=== PATIENT | female | born 1990 | race Caucasian/White ===

== ENCOUNTER → 2017-04-20 | Day surgery (SDC) | payer OTHER, MEDICAID ==
[~2017-04-20] VITALS: Ht 160 cm; Wt 103.5 kg
[~2017-04-20] MED LIST: *MEPERIDINE 25 MG INJ VIAL PERIprocedural Use ONLY ONE; ACETAMINOPHEN 1000 MG/100 ML 100 ML IV ONE; ACETAMINOPHEN/HYDROcodone 325 MG/5 MG TAB ONE; AMOX500T PO; AZIT500T2 PO; BACITRACIN TOP OINT 15 GM TUBE ONE; BUPIVACAINE HCL PF 0.5% 30 ML VIAL ONE; CHLORHEXIDINE GLUCONATE 2 % 1 PACK (2 CLOTHS) TOPICAL PRN; FAMOTIDINE 20 MG/2 ML VIAL ONE; INSULIN HUMAN REGULAR 1,000 UNITS/10 ML VIAL SQ PRN; LACTATED RINGER'S 1000 ML INJ 500 ML IV SCH; LACTATED RINGER'S 1000 ML IV PRN; LIDOCAINE HCL 2% 50 ML VIAL ONE; LORazepam 2 MG/ML VIAL ONE; METOPROLOL TARTRATE 25 MG TAB PO PRN; MIDAZOLAM HCL 2 MG/2 ML VIAL ONE; MORPHINE SULFATE 4 MG/ML INJ ONE; NEOMYCIN/POLYMYXIN 1 ML G.U. IRRIGANT ONE; ONDANSETRON HCL 4 MG/2 ML VIAL IV PUSH ONE; POVIDONE IODINE 5% (ANTISEPSIS KIT) 4 APPLICATIONS EACH NARE PRN; PROPOFOL 200 MG/20 ML AMP IV ONE; SODIUM CHLORID 0.9% 500 ML IV PRN; TOBR0.3S EACH EYE; ceFAZolin 1,000 MG/NS 100 ML IV SCH; ceFAZolin 2 GM PREMIX 50 ML IV SCH
[2017-04-20 15:31] VITALS: PULSE 120
--- NOTE | 2017-04-20 15:34 | PD.OP ---
Operative Report Preoperative Diagnosis: (1) Laceration of right forearm with complication Postoperative Diagnosis: (1) laceration median nerve right forearm (2) Laceration of right forearm with complication (3) laceration palmaris longus right forearm (4) lacertion flexor carpi radialis right forearm Procedure: exploration, repair median nerve, repair flexor carpi radialis and palmaris longus right forearm Anesthesia: general Surgeon: Javier Villela Cleaning Porter(s): karla Operation and Findings: laceration volar aspect distal right forearm 4cms laceration median nerve laceration flexor carpi radialis laceration palmaris longus Javier Villela MD Apr 20, 2017 15:34
[2017-04-20 16:30] VITALS: TEMP 98.6
[2017-04-20 17:15] VITALS: BP 135/90; PULSE 109; RESP 14; O2SAT 96
--- NOTE | 2017-04-20 18:42 | MP ---
cc: LIEN OAKLEY DATE OF SURGERY 04/20/17 PREOPERATIVE DIAGNOSIS Laceration right forearm with laceration of the median nerve and flexor tendons. POSTOPERATIVE DIAGNOSIS Laceration volar aspect of the right forearm with laceration median nerve, laceration flexor carpi radialis and laceration palmaris longus. PROCEDURE Exploration, repair of median nerve, repair flexor carpi radialis and repair palmaris longus and repair of laceration right forearm. SURGEON Dr. Ash Oakley ANESTHESIA General ESTIMATED BLOOD LOSS Minimal TOURNIQUET TIME 103 minutes at 250 mmHg. IMPLANTS USED Axogen nerve protector 7 mm x 40 mm. HISTORY The patient is a 26-year-old female who presented complaints of laceration to the right distal forearm about 5 days ago. The patient fell and lacerated the right forearm on a piece of glass. On examination, she had a transverse laceration involving the distal volar aspect of the forearm measuring about 4-5 cm. The patient had no sensation in the median nerve distribution. Range of motion of the fingers and the wrist was painful. She was consented for exploration and repair of median nerve and possible repair of flexor tendons. The patient was explained risk and benefits of the procedure. PROCEDURE IN DETAIL The patient was brought to the operating room under general anesthesia. The right upper extremity was thoroughly prepped and draped. The previously placed sutures were removed. Incision was then extended both proximally and distally in a curvilinear fashion. Exploration of the wound was carried out. She had an oblique laceration over the volar distal aspect of the forearm. There was almost complete laceration except for two fascicular bundles on the ulnar aspect of the median nerve which was intact. There was complete laceration of the flexor carpi radialis and complete laceration of palmaris longus. Thorough wash of the wound was carried out. Attention was initially directed to the flexor carpi radialis. The tendon edges were freshened, was held in place with hypodermic needles and was approximated using 3-0 Ethibond in a cross cruciate fashion with four strands crossing the repair site. The palmaris longus was then approximated using 3-0 Ethibond in a cross cruciate fashion with four strands crossing the repair site. Next, attention was then directed to the median nerve. Edges of the median nerve were freshened using 11 blade. The median nerve was then approximated in an epineural fashion using 6-0 Prolene sutures. Multiple interrupted sutures were applied. The fascicular bundles were well-approximated. There was no evidence of tension across the repair site. The repair site was then protected using Axogen nerve protector 7 X 40mm which was held in place by 6-0 Prolene in a horizontal mattress interrupted fashion. Bleeding points were cauterized with bipolar cautery. Skin laceration was approximated using 5-0 nylon in a horizontal mattress interrupted fashion. Xeroform bacitracin dressing applied. Bulky hand dressing was applied which was held in place by Sof-Rol and a dorsal block splint was applied keeping the distal in flexion. Tourniquet was deflated. Total tourniquet time was 103 minutes. She had good distal circulation at the end of the procedure. The patient was recovered and sent to go recovery in stable condition. She will follow up in [id number] days' time for a dressing change. Lien Oakley MD SE/ /3:35 PM /6:27 PM DARRYL
== END | disposition home or self-care (01) ==
LOC: PHSDC 10:55
PROVIDERS: ATTEND Surgery Surgery of the Hand
DX: S56.521A Laceration of other extensor muscle, fascia and tendon at forearm level, right arm, initial encounter (principal); S64.11XA Injury of median nerve at wrist and hand level of right arm, initial encounter; S66.821A Laceration of other specified muscles, fascia and tendons at wrist and hand level, right hand, initial encounter; W01.0XXA Fall on same level from slipping, tripping and stumbling without subsequent striking against object, initial encounter; E66.9 Obesity, unspecified; Z68.41 Body mass index [BMI] 40.0-44.9, adult
CPT/HCPCS: C9353; J0131; J2060; J2175; J2250; J2270; J2405; J3010; J7120

== ENCOUNTER 2017-06-26 18:39 | Emergency (ER) | payer MEDICAID, OTHER ==
[~2017-06-26 18:39] MED LIST changes: -*MEPERIDINE 25 MG INJ VIAL PERIprocedural Use ONLY ONE; -ACETAMINOPHEN 1000 MG/100 ML 100 ML IV ONE; -ACETAMINOPHEN/HYDROcodone 325 MG/5 MG TAB ONE; -AZIT500T2 PO; -BACITRACIN TOP OINT 15 GM TUBE ONE; -BUPIVACAINE HCL PF 0.5% 30 ML VIAL ONE; -CHLORHEXIDINE GLUCONATE 2 % 1 PACK (2 CLOTHS) TOPICAL PRN; -FAMOTIDINE 20 MG/2 ML VIAL ONE; -INSULIN HUMAN REGULAR 1,000 UNITS/10 ML VIAL SQ PRN; -LACTATED RINGER'S 1000 ML INJ 500 ML IV SCH; -LACTATED RINGER'S 1000 ML IV PRN; -LIDOCAINE HCL 2% 50 ML VIAL ONE; -LORazepam 2 MG/ML VIAL ONE; -METOPROLOL TARTRATE 25 MG TAB PO PRN; -MIDAZOLAM HCL 2 MG/2 ML VIAL ONE; -MORPHINE SULFATE 4 MG/ML INJ ONE; -NEOMYCIN/POLYMYXIN 1 ML G.U. IRRIGANT ONE; -ONDANSETRON HCL 4 MG/2 ML VIAL IV PUSH ONE; -POVIDONE IODINE 5% (ANTISEPSIS KIT) 4 APPLICATIONS EACH NARE PRN; -PROPOFOL 200 MG/20 ML AMP IV ONE; -SODIUM CHLORID 0.9% 500 ML IV PRN; -TOBR0.3S EACH EYE; -ceFAZolin 1,000 MG/NS 100 ML IV SCH; -ceFAZolin 2 GM PREMIX 50 ML IV SCH
[2017-06-26 18:41] VITALS: BP 132/87; PULSE 120; RESP 20; TEMP 98.6; O2SAT 100
[2017-06-26] MEDS ORDERED: SODIUM CHLOR 0.9% 1000 ML INJ 1,000 ML IV SCH (19:32)
[2017-06-26] MEDS ORDERED: SODIUM CHLOR 0.9% 1000 ML INJ 1,000 ML IV ONE (19:32)
[2017-06-26] MEDS ORDERED: SODIUM CHLORIDE 0.9% FLUSH 10 ML FLUSH IVF PRN (19:45)
[2017-06-26] MEDS ORDERED: ONDANSETRON HCL 4 MG/2 ML VIAL IV PUSH ONE (19:45)
--- NOTE | 2017-06-26 19:58 | PD ---
HPI Chief Complaint: Related Problem Time Seen by Provider: 19:40 Travel History International Travel<30 days: No Contact w/Intl Traveler<30days: No Traveled to known affect area: No History of Present Illness HPI This is a 26-year-old 001 female patient who is estimated gestational age 7 weeks 1 day. She presents for evaluation of nausea, vomiting, dry heaving, dysuria. Symptoms started 5 days ago. She reports that she has been having little to eat or drink over the past several days secondary to severe nausea. She endorses dysuria, burning sensation when she urinates, with associated lower back pain. She endorses some epigastric discomfort which she believes is secondary to vomiting and retching. She denies fevers or chills, chest pain or shortness of breath, cough or congestion. She endorses some clear vaginal discharge. She is sexually active with one long-term partner. Denies any vaginal bleeding. Her [employer] is Dr. Thornton. She reports that she had a transvaginal ultrasound in his office one week ago which revealed an intrauterine with heart tones. No other complaints at this time. PFSH Past Medical History Cancer: No Cardiovascular Problems: Yes (MURMUR ( CHILD)) Diabetes: No Diminished Hearing: No Endocrine: No Genitourinary: No Hepatitis: No Hiatal Hernia: No Immune Disorder: No Musculoskeletal: No Neurologic: No Psychiatric: No Reproductive: No Respiratory: No Immunizations Current: Yes Thyroid Disease: No ?: : 0 Past Surgical History Abdominal Surgery: Yes () AICD: No Cardiac Surgery: No Ear Surgery: No Endocrine Surgery: No Eye Surgery: No Genitourinary Surgery: No Gynecologic Surgery: No Joint Replacement: No Oral Surgery: Yes (TONSILLECTOMY) Pacemaker: No Thoracic Surgery: No Tonsillectomy: Yes (06/09/2010) Other Surgery: Yes (wrist tendon and nerve repair) Social History Alcohol Use: No Tobacco Use: No Substance Use: No Allergies-Medications (Allergen,Severity, Reaction): Coded Allergies: aspirin (Verified Allergy, Severe, Nausea/Vomiting, 04/20/17) ibuprofen (Verified Adverse Reaction, Intermediate, VOMITING, 04/20/17) Reported Meds & Prescriptions Reported Meds & Active Scripts Active Diclegis (Doxylamine-Pyridoxine) 10-10 Mg Tab 2 Tab PO ONCE DAILY BEDTIME 14 Days Keflex (Cephalexin) 500 Mg Cap 500 Mg PO Q12H 7 Days Reported 19 29-1 mg ( Vit W/ Ferrous Fumara) 29 Mg Iron-1 Mg Chw Amoxicillin 500 Mg Tab 500 Mg PO BID Review of Systems Except as stated in HPI: all other systems reviewed are Neg Physical Exam Narrative GENERAL: Pleasant well-developed well-nourished female in no acute distress SKIN: Warm and dry. HEAD: Atraumatic. Normocephalic. EYES: Pupils equal and round. No scleral icterus. No injection or drainage. ENT: No nasal bleeding or discharge. Mucous membranes pink and moist. NECK: Trachea midline. No JVD. CARDIOVASCULAR: Regular rate and rhythm. No murmur appreciated. RESPIRATORY: No accessory muscle use. Clear to auscultation. Breath sounds equal bilaterally. GASTROINTESTINAL: Abdomen soft, non-tender, nondistended. Hepatic and splenic margins not palpable. MUSCULOSKELETAL: No obvious deformities. No clubbing. No cyanosis. No edema. NEUROLOGICAL: Awake and alert. No obvious cranial nerve deficits. Motor grossly within normal limits. Normal speech. PSYCHIATRIC: Appropriate mood and affect; insight and judgment normal. Data Data Last Documented VS Vital Signs Date Time Temp Pulse Resp B/P (MAP) Pulse Ox O2 Delivery O2 Flow Rate FiO2 06/26/17 18:41 98.6 120 20 132/87 (102) 100 Room Air Orders Orders Electrocardiogram (06/26/17 19:32) Ed Urine Pregnancytest Poc (06/26/17 19:32) Complete Blood Count With Diff (06/26/17 19:32) Comprehensive Metabolic Panel (06/26/17 19:32) Urinalysis - C+S If Indicated (06/26/17 19:32) Ecg Monitoring (06/26/17 19:32) Iv Access Insert/Monitor (06/26/17 19:32) Oximetry (06/26/17 19:32) Sodium Chloride 0.9% Flush (Ns Flush) (06/26/17 19:45) Sodium Chlor 0.9% 1000 Ml Inj (Ns 1000 M (06/26/17 19:32) Lipase (06/26/17 19:32) Sodium Chlor 0.9% 1000 Ml Inj (Ns 1000 M (06/26/17 19:32) Electrocardiogram (06/26/17 19:32) Magnesium (Mg) (06/26/17 19:32) Ondansetron Inj (Zofran Inj) (06/26/17 19:45) Urine Culture (06/26/17 19:55) Ceftriaxone Inj (Rocephin Inj) (06/26/17 20:45) Ed Discharge Order (06/26/17 20:47) Potassium Chloride (Kcl) (06/26/17 21:00) Labs Laboratory Tests Test 06/26/17 19:55 White Blood Count 4.7 TH/MM3 Red Blood Count 4.59 MIL/MM3 Hemoglobin 12.4 GM/DL Hematocrit 37.0 % Mean Corpuscular Volume 80.7 FL Mean Corpuscular Hemoglobin 27.1 PG Mean Corpuscular Hemoglobin Concent 33.6 % Red Cell Distribution Width 13.6 % Platelet Count 206 TH/MM3 Mean Platelet Volume 7.5 FL Neutrophils (%) (Auto) 53.0 % Lymphocytes (%) (Auto) 36.0 % Monocytes (%) (Auto) 10.5 % Eosinophils (%) (Auto) 0.3 % Basophils (%) (Auto) 0.2 % Neutrophils # (Auto) 2.5 TH/MM3 Lymphocytes # (Auto) 1.7 TH/MM3 Monocytes # (Auto) 0.5 TH/MM3 Eosinophils # (Auto) 0.0 TH/MM3 Basophils # (Auto) 0.0 TH/MM3 CBC Comment DIFF FINAL Differential Comment Urine Color YELLOW Urine Turbidity HAZY Urine pH 5.5 Urine Specific [place] 1.030 Urine Protein TRACE mg/dL Urine Glucose (UA) NEG mg/dL Urine Ketones NEG mg/dL Urine Occult Blood MOD Urine Nitrite NEG Urine Bilirubin NEG Urine Urobilinogen 2.0 MG/DL Urine Leukocyte Esterase LARGE Urine RBC 10 /hpf Urine WBC 22 /hpf Urine Squamous Epithelial Cells 9 /hpf Urine Calcium Oxalate Crystals OCC /hpf Urine Amorphous Sediment RARE Urine Bacteria FEW /hpf Urine Mucus FEW /lpf Microscopic Urinalysis Comment CULTURE INDICATED Blood Urea Nitrogen 7 MG/DL Creatinine 0.85 MG/DL Random Glucose 79 MG/DL Total Protein 7.6 GM/DL Albumin 3.5 GM/DL Calcium Level 8.9 MG/DL Magnesium Level 1.8 MG/DL Alkaline Phosphatase 75 U/L Aspartate Amino Transf (AST/SGOT) 21 U/L Alanine Aminotransferase (ALT/SGPT) 30 U/L Total Bilirubin 0.2 MG/DL Sodium Level 136 MEQ/L Potassium Level 3.4 MEQ/L Chloride Level 101 MEQ/L Carbon Dioxide Level 26.0 MEQ/L Anion Gap 9 MEQ/L Estimat Glomerular Filtration Rate 82 ML/MIN Lipase 147 U/L MDM Medical Decision Making Medical Screen Exam Complete: Yes Emergency Medical Condition: Yes Medical Record Reviewed: Yes Interpretation(s) EKG sinus tachycardia rate 110 CBC unremarkable CMP Urinalysis large leukocytes, 10 RBCs, culture pending Differential Diagnosis Hyperemesis gravidarum, dehydration, electrolyte abnormality, pyelonephritis, cystitis Narrative Course The patient was placed on ECG monitoring pulse oximetry. A 12-lead EKG was obtained. 2 L of IV fluids of in order. Plan is for basic lab work, urinalysis. The patient was initially requesting diclegis for nausea however I called our pharmacist and we do not carry that here in the hospital and certainly the patient will be discharged with a prescription for diclegis. The patient is agreeable to a one time dose of Zofran, category B, discussed complication risks. CBC is unremarkable. Urinalysis is consistent with urinary tract infection, IV Rocephin initiated. The patient's potassium was 3.4 so she was given oral potassium. Upon examination feels significant improved, heart rate is improved to 100, she is tolerating oral hydration. At this point in time the plan is to discharge the patient with Keflex and prescription for diclegis. Stable for discharge. Diagnosis Primary Impression: Nausea and vomiting during Additional Impression: Urinary tract infection Qualified Codes: N39.0 - Urinary tract infection, site not specified; R31.9 - Hematuria, unspecified Additional Instructions: Stable hydrated and well-nourished. Medication as prescribed. Slowly advance diet as tolerated. Follow-up with [employer]. Return for any new or worsening symptoms such as dehydration, high fevers, intractable pain Med/Other Pt SpecificInfo: Prescription(s) given Scripts Doxylamine-Pyridoxine (Diclegis) 10-10 Mg Tab 2 TAB PO once daily bedtime for 14 Days, #28 Prov: Sharan Chapa MD 06/26/17 Cephalexin (Keflex) 500 Mg Cap 500 MG PO Q12H for Infection for 7 Days, #14 CAP 0 Refills Prov: Sharan Chapa MD 06/26/17 Disposition: 01 DISCHARGE HOME Condition: Stable Grant Montanez Jun 26, 2017 19:58
[2017-06-26] MEDS ORDERED: PREN29CH2 (20:09)
[2017-06-26 20:18] LABS: AUTOMATED NEUTROPHIL # 2.5 TH/MM3 (1.8-7.7); BASOPHIL % 0.2 % (0.0-2.0); EOSINOPHIL % 0.3 % (0.0-4.0); HEMO FLAGS DIFF FINAL; LYMPHOCYTE # 1.7 TH/MM3 (1.0-4.8); MEAN CELL VOLUME 80.7 FL (80.0-100.0); MEAN CORPUSCULAR HEMOGLOBIN 27.1 PG (27.0-34.0); MEAN CORPUSCULAR HGB CONC 33.6 % (32.0-36.0); MONO % 10.5 % (0.0-8.0); PLATELET COUNT 206 TH/MM3 (150-450); RED BLOOD COUNT 4.59 MIL/MM3 (4.00-5.30); RED CELL DISTRIBUTION WIDTH 13.6 % (11.6-17.2); WHITE BLOOD COUNT 4.7 TH/MM3 (4.0-11.0)
[2017-06-26 20:22] LABS: BACTERIA, URINE FEW /hpf; BLOOD, URINE MOD (NEG); CALCIUM OXALATE CRYSTALS,URINE OCC /hpf; COMMENT (UR) CULTURE INDICATED; CULTURE IF INDICATED CULTURE INDICATED; GLUCOSE,URINE NEG (NEG); KETONE, URINE NEG (NEG); MUCUS URINE FEW /lpf (OCC); NITRITE,URINE NEG (NEG); PH, URINE 5.5 (5.0-8.5); SQUAMOUS EPITHELIAL CELL URINE 9 /hpf (0-5); URINE COLOR YELLOW (YELLW/STRAW)
[2017-06-26 20:38] LABS: ANION GAP 9 MEQ/L (5-15); AST (GOT) 21 U/L (15-37); BLOOD UREA NITROGEN 7 MG/DL (7-18); CHLORIDE 101 MEQ/L (98-107); GLOMERULAR FILTRATION RATE 82 ML/MIN (>89); MAGNESIUM 1.8 MG/DL (1.5-2.5); POTASSIUM 3.4 MEQ/L (3.5-5.1); SODIUM (NA) 136 MEQ/L (136-145)
[2017-06-26 20:39] LABS: ALT (GPT) 30 U/L (10-53)
[2017-06-26 20:41] LABS: ALKALINE PHOSPHATASE 75 U/L (45-117); TOTAL BILIRUBIN ADULT 0.2 MG/DL (0.2-1.0)
[2017-06-26] MEDS ORDERED: cefTRIAXone INJ 1,000 MG in SODIUM CHLORIDE 0.9% INJ 100 ML IV ONE (20:45)
[2017-06-26] MEDS ORDERED: CEPH-460 PO (20:51)
[2017-06-26] MEDS ORDERED: DOXY10TA PO (20:51)
[2017-06-26] MEDS ORDERED: POTASSIUM CHLORIDE 20 MEQ CONTROLLED RELEASE TAB PO ONE (21:00)
--- NOTE | 2017-06-27 14:34 | EKG ---
Date Performed: 06/26/2017 Time Performed: 20:01:01 PTAGE: 26 years EKG: SINUS TACHYCARDIA ABNORMAL RHYTHM ECG Compared to prior tracing no significant change PREVIOUS TRACING : 01/27/2002 01.06 DOCTOR: Karla Sarabia Interpretating Date/Time 06/27/2017 14:28:32
== END 2017-06-26 21:47 | disposition home or self-care (01) ==
LOC: NEPD 18:39
DX: O21.9 Vomiting of pregnancy, unspecified (principal); O23.41 Unspecified infection of urinary tract in pregnancy, first trimester; B96.89 Other specified bacterial agents as the cause of diseases classified elsewhere; N89.8 Other specified noninflammatory disorders of vagina; R00.0 Tachycardia, unspecified; R94.31 Abnormal electrocardiogram [ECG] [EKG]; Z3A.01 Less than 8 weeks gestation of pregnancy; Z79.899 Other long term (current) drug therapy; Z88.6 Allergy status to analgesic agent
CPT/HCPCS: 80053; 81001; 83690; 83735; 84703; 85025; 87086; 93005; 96361; 96365; 96375; 99284; J0696; J2405; J7030

== ENCOUNTER 2017-11-03 10:42 | Emergency (ER) | payer MEDICAID ==
[~2017-11-03 10:42] MED LIST changes: +CEPH-460 PO; +DOXY10TA PO; +PREN29CH2
[2017-11-03 11:53] LABS: BILIRUBIN, URINE NEG (NEG); BLOOD, URINE TRACE (NEG); GLUCOSE,URINE NEG (NEG); KETONE, URINE TRACE mg/dL (NEG); MUCUS URINE MANY /lpf (OCC); NITRITE,URINE NEG (NEG); SQUAMOUS EPITHELIAL CELL URINE 19 /hpf (0-5); URINE COLOR YELLOW (YELLW/STRAW); URINE LEUKOCYTE ESTERASE NEG (NEG)
[2017-11-03] MEDS ORDERED: ACETAMINOPHEN 325 MG TAB PO ONE (12:15)
--- NOTE | 2017-11-03 12:20 | PD ---
HPI Chief Complaint URI sx Date Seen: Nov 03, 2017 Time Seen: 11:06 Travel History International Travel<30 Days: No Contact w/Intl Traveler<30Days: No History of Present Illness HPI Patient is a 26 year old at 24 weeks gestation who presents for URI symptoms x 5 days. Symptoms started Monday, including cough, congestion, some shortness of breath with exertion. She came in today because still sick. No sick contacts but works at [employer]. Fever 101 orally at home yesterday. She is currently being treated for UTI on amoxicillin She denies leakage of fluid, vaginal bleeding, and contractions. She feels baby moving regularly. She denies BACON/N/V/D/fever/sick contacts/SOB/calf pain/ dizziness/seeing spots. OB care is with Dr. Fernandez. History Past Medical History Medical History: Denies Significant Hx Obstetric History Obstetric History G1: 2016, primary CS due to FTP, 8lb 2 oz G2: current Past Surgical History Narrative Surgical CS Tonsils Wrist surgery Family History Family History: Negative Social History Alcohol Use: No Tobacco Use: No Substance Abuse: No Allergies-Medications (Allergen,Severity, Reaction): Coded Allergies: aspirin (Verified Allergy, Severe, Nausea/Vomiting, 04/20/17) ibuprofen (Verified Adverse Reaction, Intermediate, VOMITING, 04/20/17) Home Meds Active Scripts Doxylamine-Pyridoxine (Diclegis) 10-10 Mg Tab, 2 TAB PO once daily bedtime for 14 Days, #28 Prov:Sharan Chapa MD 06/26/17 Cephalexin (Keflex) 500 Mg Cap, 500 MG PO Q12H for Infection for 7 Days, #14 CAP 0 Refills Prov:Sharan Chapa MD 06/26/17 Reported Medications Vit W/ Ferrous Fumara ( 19 29-1 mg) 29 Mg Iron-1 Mg Chw 06/26/17 Amoxicillin (Amoxicillin) 500 Mg Tab, 500 MG PO BID for Infection, TAB 0 Refills 04/20/17 Review of Systems General / Constitutional: No: Fever, Chills Eyes: No: Diploplia, Blurred Vision HENT: Headaches, No: Vertigo Cardiovascular: No: Irregular Rhythm, Chest Pain or Discomfort Respiratory: No: Cough, Short of Breath Gastrointestinal: No: Nausea, Vomiting, Diarrhea, Abdominal Pain Genitourinary: No: Urgency, Dysuria Musculoskeletal: No: Weakness, Edema Skin: No Rash, No Itching Neurologic: Weakness, No: Syncope Psychiatric: No: Anxiety, Depression Physical Exam Narrative GENERAL: Well-nourished, well-developed patient. SKIN: Warm and dry. HEAD: Normocephalic and atraumatic. EYES: No scleral icterus. No injection or drainage. ENT: No nasal drainage noted. Mucous membranes pink. Airway patent. NECK: Supple, trachea midline. No JVD. CARDIOVASCULAR: Regular rate and rhythm without murmurs, gallops, or rubs. RESPIRATORY: Breath sounds equal bilaterally. No accessory muscle use. ABDOMEN/GI: Abdomen soft, non-tender, bowel sounds present, no rebound, no guarding. Gravid. GENITOURINARY: deferred FHT's: Category: 2 Baseline: 160 Reactive: y Variability: mod Decels: absent EXTREMITIES: No cyanosis or edema. BACK: Nontender without obvious deformity. No CVA tenderness. NEUROLOGICAL: Awake and alert. Motor and sensory grossly within normal limits. Five out of 5 muscle strength in all muscle groups. Normal speech. Data Data Vital Signs Reviewed: Yes (BP110/65, P123, R18, T97.4, Oximetry 97%) Orders Orders Vital Signs (Adult) .ON ADMISSION (11/03/17 11:19) ^ Labor Status (11/03/17 11:19) Urinalysis - C+S If Indicated (11/03/17 11:19) ^ Non Stress Test (11/03/17 11:19) Influenzae A/B Antigen (11/03/17 12:00) Oximetry (11/03/17 12:00) Labs Laboratory Tests Test 11/03/17 10:45 Urine Color YELLOW Urine Turbidity HAZY Urine pH 6.0 Urine Specific [place] 1.033 Urine Protein 30 Urine Glucose (UA) NEG Urine Ketones TRACE Urine Occult Blood TRACE Urine Nitrite NEG Urine Bilirubin NEG Urine Urobilinogen 2.0 Urine Leukocyte Esterase NEG Urine RBC 4 Urine WBC 2 Urine Squamous Epithelial Cells 19 Urine Mucus MANY Microscopic Urinalysis Comment CULT NOT INDICATED MDM Narrative Course / MDM Patient at 24 weeks gestation, presents with viral URI symptoms. Intrauterine at 24 weeks: Category 1 tracing No CTX UA showing dehydration (ketones, spec gravity 1.033), no infection PO hydration Routine care with Dr. Jim ROBERSONI sx: Afebrile, VSS, not hypoxic. Clinical exam benign. Suspect viral etiology Acetaminophen 650mg PO x 1 if pt desires Will check for flu, if negative will discharge home with counseling on supportive care If flu, will discharge home with Tamiflu with close f/u If flu negative, will discharge home with supportive care counseling and close f /u Recent UTI: On amoxicillin, two doses left Patient is counseled to complete full course UA shows no LE, no nitrites, +dehydration DW Dr. Schmitt Disposition: 01 DISCHARGE HOME Condition: Stable Patient Instructions: General Instructions, Upper Respiratory Infection (ED) Cici Haney MD R2 Nov 03, 2017 12:20
[2017-11-03] MEDS ORDERED: OXYTOCIN 10 UNIT/ML AMP ONE (12:30)
== END 2017-11-03 13:20 | disposition home or self-care (01) ==
LOC: HOBED 10:42
DX: O26.892 Other specified pregnancy related conditions, second trimester (principal); E86.0 Dehydration; O23.42 Unspecified infection of urinary tract in pregnancy, second trimester; Z3A.24 24 weeks gestation of pregnancy
CPT/HCPCS: 81001; 87804; 99283; J2590

== ENCOUNTER 2017-12-22 11:45 | Emergency (ER) | payer MEDICAID ==
--- NOTE | 2017-12-22 13:27 | PD ---
HPI Chief Complaint Spotting and possible contractions Date Seen: Dec 22, 2017 Time Seen: 13:21 Travel History International Travel<30 Days: No Contact w/Intl Traveler<30Days: No Known Affected Area: No History of Present Illness HPI 27-year-old 2 para 1 at 33 weeks gestation who reports that she think she might be having contractions. She also reports small amount of spotting which she last saw at 8 AM this morning. She reports no intercourse for greater than 1 week. No leakage of fluid. She reports decreased movement compared to yesterday. No dysuria hematuria or frequency. Her prior was delivered by at term for arrest of dilation at 7 cm. History Past Medical History Medical History: Denies Significant Hx Obstetric History Obstetric History 1 prior term delivery by Uncomplicated course with Dr. Mora Past Surgical History Narrative Surgical , tonsillectomy, tendon and nerve repair in her right wrist Family History Family History: Negative Social History Alcohol Use: No Tobacco Use: No Substance Abuse: No Allergies-Medications (Allergen,Severity, Reaction): Coded Allergies: aspirin (Verified Allergy, Severe, Nausea/Vomiting, 04/20/17) ibuprofen (Verified Adverse Reaction, Intermediate, VOMITING, 04/20/17) Home Meds Active Scripts Doxylamine-Pyridoxine (Diclegis) 10-10 Mg Tab, 2 TAB PO once daily bedtime for 14 Days, #28 Prov:Sharan Chapa MD 06/26/17 Cephalexin (Keflex) 500 Mg Cap, 500 MG PO Q12H for Infection for 7 Days, #14 CAP 0 Refills Prov:Sharan Chapa MD 06/26/17 Reported Medications Vit W/ Ferrous Fumara ( 19 29-1 mg) 29 Mg Iron-1 Mg Chw 06/26/17 Amoxicillin (Amoxicillin) 500 Mg Tab, 500 MG PO BID for Infection, TAB 0 Refills 04/20/17 Review of Systems Except as stated in HPI: all other systems reviewed are Neg Physical Exam Narrative GENERAL: Well-nourished, well-developed patient. SKIN: Warm and dry. HEAD: Normocephalic and atraumatic. EYES: No scleral icterus. No injection or drainage. ENT: No nasal drainage noted. Mucous membranes pink. Airway patent. NECK: Supple, trachea midline. No JVD. CARDIOVASCULAR: Regular rate and rhythm without murmurs, gallops, or rubs. RESPIRATORY: Breath sounds equal bilaterally. No accessory muscle use. ABDOMEN/GI: Abdomen soft, non-tender, bowel sounds present, no rebound, no guarding Gravid to [-] weeks size Fundal Height: [-] GENITOURINARY: External Genitalia: intact and normal in appearance BUS glands: [Negative-, no blood in the vault] Cervix: [-] Dilatation: [Closed-] Effacement: [-Long] Station: [High-] Presentation: [-] Membranes: [intact Uterine Contractions: [None-] FHT's: Category: [-] Baseline: [-] Reactive: [Yes-] Variability: [-] Decels: [-] EXTREMITIES: No cyanosis or edema. BACK: Nontender without obvious deformity. No CVA tenderness. NEUROLOGICAL: Awake and alert. Motor and sensory grossly within normal limits. Five out of 5 muscle strength in all muscle groups. Normal speech. Data Data Vital Signs Reviewed: Yes MDM Medical Record Reviewed: Yes Narrative Course / MDM Assessment: 33 week intrauterine without evidence of vaginal bleeding , reactive NST Plan: Precautions were reviewed with the patient, she will follow-up with Dr. Mora in 1 week. Diagnosis Diagnosis: Primary Impression: 33 weeks gestation of Disposition: 01 DISCHARGE HOME Condition: Good Varun Minaya MD Dec 22, 2017 13:27
== END 2017-12-22 14:00 | disposition home or self-care (01) ==
LOC: HOBED 11:45
DX: O47.03 False labor before 37 completed weeks of gestation, third trimester (principal); Z3A.33 33 weeks gestation of pregnancy; Z88.6 Allergy status to analgesic agent
CPT/HCPCS: 99284

== ENCOUNTER 2018-01-30 09:37 | Inpatient (IN) ==
--- NOTE | 2018-01-30 09:48 | MH ---
cc: Carlin Bob MD DATE OF ADMISSION: 01/30/2018 DATE OF : 1990 CHIEF COMPLAINT: Admission for Rule out preeclampsia and for repeat . HISTORY OF PRESENT ILLNESS: 27 yo at 38 weeks 4 days by her sure LMP consistent with 6 week ultrasound (estimated due date of 02/09/2018) presented the office today for a routine OB visit. She was seen last week with mildly elevated blood pressures and diagnosed with gestational hypertension, she went back to [facility] for worsening blood pressures sometime last week and was ruled out for preeclampsia again. These work up were HELLP labs and P:C, no 24hr urine was done. Patient has had a persistent headache since yesterday, vision changes on occasion, no epigastric or right upper quadrant pain. Endorses movement. Occasional cramping or bleeding or loss of fluid. Patient was originally scheduled for repeat this Monday but given her diagnosis of gestational hypertension and worsening symptoms and concern for preeclampsia with severe features plan was made for admission the hospital, collect HELLP labs, and perform today. Past medical history: Obesity, genital HSV, depression and anxiety. Medications: vitamin and acyclovir. Allergies: Motrin (vomiting), aspirin (vomiting) obstetrical history: Jul 2015: 40 weeks, primary , female weighing 8 lbs. 2 oz., named Lula. COP history: LMP 05/05/2017, denies history of STDs, Pap on 07/14/2017 with ASCUS with HPV positive. surgical history: 1. 2016 2. Right wrist repair after laceration from glass related injury. Family history: No pertinent positives family history: Social history: Denies tobacco or drug use EXAM: blood pressure 140/100, weight 247lbs in the office today. General: Alert and oriented, well nourished, no acute distress. Skin: Skin is warm, dry and pink, no rashes or lesions. Eye: EOMI, normal conjunctiva HENT: Normocephalic, normal hearing,no scleral icterus, Breasts: deferred Lungs: Clear to auscultation bilaterally, non-labored respiration. Heart: Regular rate and rhythm, no murmurs, rubs or gallops. Abdomen: Soft, non-tender, non-distended, normal bowel sounds, no masses. : Deferred Musculoskeletal: Normal range of motion and strength, no tenderness or edema. Neurologic: Awake, alert and oriented x 3, no gross focal neurological deficits Psychiatric: Cooperative, appropriate mood and affect. LABORATORY DATA: Blood type A positive, antibody negative. Baseline hemoglobin 12.1. Varicella immune, rubella immune, VDRL nonreactive. Urine culture: Enterococcus. Hepatitis B surface antigen negative. HIV negative. Urine drug screen negative. TSH 1.570. Sickle cell screen negative. Gonorrhea and chlamydia negative. Second trimester screen declined. One-hour Glucola 134. Repeat hemoglobin on 10/24/2017 was 10.9. GBS positive. ASSESSMENT AND PLAN: 27 yo at 38 weeks 4 days by her sure LMP consistent with 6 week ultrasound (estimated due date of 02/09/2018) admitted for repeat and work up for preeclampsia. 1. Intrauterine : Will be based on monitoring at time of presentation. - EFW n 01/23/20o18 was 3787 grams, 96th percentile, abdominal circumference 96th percentile. Amniotic - Today Fetus cephalic, 8/8 biophysical profile, placenta anterior 2. History of , desiring repeat. Discussed risks, benefits and expected outcome of repeat . - T&S, 2g ancef pre op. 3. Obesity. Passed 1-hour Glucola. 4. History of herpes simplex virus, no lesions during the ; has been on prophylaxis throughout 5. Depression and anxiety. The patient had been offered medication earlier in the , but had never started. We will follow closely . 6. Atypical squamous cells of undetermined significance, hrHPV pos Pap: Per guidlines should have had colpo either during or plan for 6 weeks , howver plan per her md psychiatry throughout the was to repeat pap . Defer this management to whomever follows patient up . 7. GHTN: will collect HELLP, urine P:C, teodora treat headache with fioricet, if no improvement, begin Mag for seizure ppx and change dx to preeclampsia w/ severe features. MD BRITTNEY Villarreal/JUANPABLO , 12:56 PM , 01:36 PM DARRYL
[2018-01-30] MEDS ORDERED: Sod Chloride 0.9% Inj 1,000 ML IV.CONT PRN (09:51)
[2018-01-30] MEDS ORDERED: Sodium Chlor 0.9% Inj 500 ML IV.SIG PRN (09:51)
[2018-01-30] MEDS ORDERED: Naloxone Inj 0.4 MG/ML Vial IV.PUSH PRN ×2 (09:51→19:39)
[2018-01-30] MEDS ORDERED: NIFEdipine 10 MG Capsule PO PRN (09:51)
[2018-01-30] MEDS ORDERED: ceFAZolin Inj 2,000 MG in Sodium Chlor 0.9% Inj 80 ML IV.SIG SCH (10:00)
[2018-01-30] MEDS ORDERED: Citric Acid/Sodium Citrate Liq 30 ML UDC PO SCH ×2 (10:00)
[2018-01-30] MEDS ORDERED: Butalbital/APAP/Caff 50/325/40 MG Tablet PO ONE (10:30)
[2018-01-30] MEDS ORDERED: Oxytocin 30 Units/500ml Premix 30 UNITS/500 ML BAG IV.SIG ONE ×2 (10:30→18:17)
--- NOTE | 2018-01-30 10:44 | P.OP ---
Date of procedure: 01/30/18 Surgeon: Carlin oBb MD Operation and Findings: Preoperative diagnosis: 1. Intrauterine at 38 weeks and 4 days 2. History of desiring repeat 3. Gestational hypertension 4. Obesity 5. Genital HSV Postop diagnosis 1. Same as above status post repeat Procedure 1. Repeat low transverse section Surgeon Dr. Carlin Bob Cable Operator: [facility] staff Findings: 1. Viable male infant at 1731, Apgars 9 and 9. Weight 4205 grams 2. Intact placenta with three-vessel cord at 1733 3. Normal uterus bilateral fallopian tubes and ovaries. No intra-abdominal adhesions 4. Dense subcutaneous scar tissue most prominent at the fascia Anesthesia: Spinal with Astramorph Specimen: Placenta to disposal or donation per patient request Estimated blood loss: 700 cc Fluid replacement: 2 L lactated Ringer's and Pitocin Urine output: 50 cc clear urine, patient voided immediately prior to case DVT prophylaxis: Sequential compression devices throughout the case Antibiotics: 2 g Ancef preoperatively Counts: correct x2 Time out done: yes Disposition: Stable to PACU then to Indications: This patient is a 27-year-old 001 now P2 002 presented to the office today for routine OB visit with a known diagnosis of gestational hypertension, she had worsening symptoms of a headache and visual changes, she was sent to the hospital this and her gestational age and symptoms for delivery and rule out preeclampsia. Please see H&P for further consent and details. Description of procedure: The patient was taken to the operating room and after spinal anesthesia was performed she was positioned and supine position with arms out in a left lateral tilt, the abdomen was prepped and draped in sterile fashion, a Pfannenstiel incision was made through her previous scar and carried down sharply to the fascia which was nicked on either side of the midline and then extended bilaterally with mayos, the fascia was elevated superiorly and inferiorly and the rectus muscles were sharply dissected off the overlying fascia, the peritoneum was entered digitally and retracted laterally. A bladder flap was developed with Metzenbaum scissors at the lower uterine segment, the hysterotomy was made in the lower uterine segment with a scalpel in a curvilinear fashion, it was extended cephalad-caudad manner, I inserted my hand into the hysterotomy and the head was elevated to the hysterotomy and with fundal pressure was delivered. With gentle downward and upward guidance the anterior and posterior shoulder were delivered, the torso and lower extremities followed with ease, the had spontaneous cry, the cord was clamped an cut and the was handed off to nursing staff after delayed cord clamping was allowed. Pitocin was bolused and with uterine massage and cord traction the placenta was delivered, uterus was cleared of clot and debris , the uterus was exteriorized and the hysterotomy was closed with 1 layer, first with 0 locking delayed absorbable suture, and a a single [id number] at the midline for hemostasis. The abdomen and hysterotomy were irrigated, inspected, and found to be hemostatic. To prevent herniation of the omentum during closure the rectus muscles were loosely reapproximated with 2 interrupted sutures of 0 Vicryl. The fascia was closed from left to right with 0 running delayed absorbable suture. The subcutaneous tissue was irrigated, inspected, hemostasis was appreciated. Due to the thickness of the subcutaneous fat it was closed and reapproximated with a single running layer of 3-0 Monocryl. The skin was closed with 3-0 Monocryl in a subcuticular fashion and then a dressing was applied and the patient tolerated procedure well was transferred to PACU.
--- NOTE | 2018-01-30 10:52 | P.OBGPN ---
Queried PDMP and reviewed report.
[2018-01-30] MEDS ORDERED: ceFAZolin 2 GM Premix Inj 2 GM/50 ML PIGGYBACK IV.SIG SCH (11:00)
[2018-01-30 11:21] LABS: Baso % (Auto) 0.2 % (0.0-2.0); Eos % (Auto) 0.2 % (0.0-4.0); Hematocrit 34.3 % (35.0-46.0); Hemoglobin 11.2 gm/dL (11.6-15.3); Lymph # (Auto) 1.8 th/mm3 (1.0-4.8); Lymph % (Auto) 26.6 % (9.0-44.0); Mean Corpuscular HGB Conc 32.8 % (32.0-36.0); Mean Corpuscular Hemoglobin 24.4 pg (27.0-34.0); Mean Corpuscular Volume 74.4 fL (80.0-100.0); Mean Platelet Volume 8.5 fL (7.0-11.0); Mono # (Auto) 0.3 th/mm3 (0.0-0.9); Mono % (Auto) 4.3 % (0.0-8.0); Neut # (Auto) 4.6 th/mm3 (1.8-7.7); Neut % (Auto) 68.7 % (16.0-70.0); Platelet Count 237 th/mm3 (150-450); Red Blood Count 4.61 mil/mm3 (4.00-5.30); Red Cell Distribution Width 15.9 % (11.6-17.2); White Blood Count 6.6 th/mm3 (4.0-11.0)
[2018-01-30 11:33] LABS: Amphetamine Urine With Conf Neg (Neg); Benzodiazepine Urine With Conf Neg (Neg)
[2018-01-30 11:35] LABS: Protein/Creatinine Ratio,Urine 0.14 (0.00-0.14)
[2018-01-30 11:41] LABS: Alanine Aminotransferase 16 U/L (10-53); Albumin 2.8 g/dL (3.4-5.0); Anion Gap 12 meq/L (5-15); Aspartate Aminotransferase 14 U/L (15-37); Blood Urea Nitrogen 6 mg/dL (7-18); Calcium 8.9 mg/dL (8.5-10.1); Carbon Dioxide 21.1 meq/L (21.0-32.0); Chloride 107 meq/L (98-107); Glomerular Filtration Rate Greater Than 89 mL/min (>89); Glucose,Random 67 mg/dL (74-106); Sodium 140 meq/L (136-145)
[2018-01-30 11:43] LABS: Alkaline Phosphatase 163 U/L (45-117); Total Protein 6.8 g/dL (6.4-8.2)
[2018-01-30] MEDS ORDERED: Phenylephrine/NS 1000 MCG/10ML Syringe IV.PUSH ONE (12:00)
[2018-01-30] MEDS ORDERED: Morphine Sulfate PF Inj 5 MG/10 ML Ampul ONE (16:47)
[2018-01-30] MEDS ORDERED: Simethicone 80 MG Chew Tablet PO PRN (18:17)
[2018-01-30] MEDS ORDERED: Morphine Inj 4 MG/ML Vial IV.PUSH PRN (18:17)
[2018-01-30] MEDS ORDERED: Acetaminophen 325 MG Tablet PO PRN (18:17)
[2018-01-30] MEDS ORDERED: fentaNYL Citrate Inj 100 MCG/2 ML Ampul ONE (18:22)
[2018-01-30] MEDS ORDERED: Ketorolac Inj 30 MG/ML (IVP) Vial ONE (18:47)
[2018-01-30] MEDS: Ketorolac Inj 30 MG/ML (IVP) Vial IV.PUSH SCH (18:57)
[2018-01-30] MEDS ORDERED: Oxytocin 30 Units/500ml Premix 30 UNITS/500 ML BAG IV.SIG PRN (23:18)
[2018-01-31] MEDS: Ketorolac Inj 30 MG/ML (IVP) Vial IV.PUSH SCH ×3 (00:48→11:53)
[2018-01-31 05:20] LABS: Baso % (Auto) 0.2 % (0.0-2.0); Eos % (Auto) 0.2 % (0.0-4.0); Hematocrit 26.1 % (35.0-46.0); Hemoglobin 8.6 gm/dL (11.6-15.3); Lymph # (Auto) 1.6 th/mm3 (1.0-4.8); Lymph % (Auto) 24.3 % (9.0-44.0); Mean Corpuscular Hemoglobin 24.8 pg (27.0-34.0); Mean Corpuscular Volume 74.9 fL (80.0-100.0); Mean Platelet Volume 8.2 fL (7.0-11.0); Mono # (Auto) 0.4 th/mm3 (0.0-0.9); Mono % (Auto) 5.5 % (0.0-8.0); Neut # (Auto) 4.7 th/mm3 (1.8-7.7); Neut % (Auto) 69.8 % (16.0-70.0); Platelet Count 166 th/mm3 (150-450); Red Blood Count 3.49 mil/mm3 (4.00-5.30); Red Cell Distribution Width 15.7 % (11.6-17.2); White Blood Count 6.8 th/mm3 (4.0-11.0)
--- NOTE | 2018-01-31 08:11 | P.PNOB ---
Subjective Post day: 1 Interval history: feeling well baby in nursery nursing and bottling lochia no excessive Objective Vital Signs/I&O: Vital Signs 01/30/18 10:44 01/30/18 10:45 01/30/18 13:41 Temperature 98.4 F Pulse Rate 103 H 106 H Respiratory Rate 20 20 Blood Pressure 121/64 136/91 H 01/30/18 18:20 01/30/18 18:35 01/30/18 18:50 Temperature 97.5 F L Pulse Rate 116 H 112 H 117 H Respiratory Rate 20 20 20 Blood Pressure 113/55 L 126/60 123/51 L 01/30/18 19:05 01/30/18 19:20 01/30/18 19:35 Temperature 97.5 F L Pulse Rate 114 H 111 H Respiratory Rate 20 18 18 Blood Pressure 142/78 H 126/55 L 01/30/18 19:50 01/31/18 00:00 01/31/18 03:55 Temperature 97.5 F L 98.6 F 98.3 F Pulse Rate 95 H 117 H 111 H Respiratory Rate 17 20 20 Blood Pressure 124/80 106/60 104/47 L Intake & Output 01/30/18 01/31/18 01/31/18 18:59 06:59 18:59 Weight 107.726 kg Other: Weight On Admission 107.726 kg Result Diagrams: 01/31/18 04:56 01/30/18 10:30 Other Results: incision clean and dry no CVAT negative homen's moderate edema Objective Remarks: GENERAL: Well-nourished, well-developed patient. CARDIOVASCULAR: Regular rate and rhythm without murmurs, gallops, or rubs. RESPIRATORY: Breath sounds equal bilaterally. No accessory muscle use. ABDOMEN/GI: Abdomen soft, non-tender. Fundus: Firm, non-tender at umbilicus. GENITOURINARY: Light to moderate bleeding. EXTREMITIES: No cyanosis or edema, non-tender, without signs of DVT. Medications and IVs: Active Medications Acetaminophen (Tylenol) 650 mg PO Q6H PRN PRN Reason: PAIN SCALE 1 TO 2 Diphenhydramine HCl (Benadryl Inj) 25 mg IV.PUSH Q6H PRN PRN Reason: MILD TO MODERATE ITCHING Stop: 01/31/18 19:38 Last Admin: 01/30/18 21:08 Dose: 25 mg Diphenhydramine HCl (Benadryl) 50 mg PO Q6H PRN PRN Reason: MILD TO MODERATE ITCHING Stop: 01/31/18 19:38 Diphtheria/Pertussis/Tetanus Vacc (Boostrix Vaccine Inj) 0.5 ml IM .ONCE ONE Stop: 01/31/18 16:01 Cefazolin Sodium/Dextrose (Ancef 2 Gm Premix Inj) 2 gm in 50 mls @ 100 mls/hr IV.SIG MORTGAGE LOAN INTERVIEWER ISA Stop: 01/31/18 10:59 Lactated Ringer's (Lr 1000 Ml Inj) 1,000 mls @ 100 mls/hr IV.CONT .Q10H ISA Stop: 01/31/18 19:17 Oxytocin (Pitocin 30 Units/Ns 500 Ml Premix) 30 units in 500 mls @ 100 mls/hr IV.SIG PRN PRN PRN Reason: Heavy bleeding Stop: 01/31/18 23:17 Ketorolac Tromethamine (Toradol Inj) 30 mg IV.PUSH Q6H ISA Stop: 01/31/18 18:29 Last Admin: 01/31/18 07:10 Dose: 30 mg Measles/Mumps/Rubella Vaccine Live (M-M-R Ii Vaccine Inj) 0.5 ml SQ .ONCE ONE Stop: 01/31/18 16:01 Miscellaneous Information ([facility] [place] [facility]) 1 each OTHER UNSCH PRN PRN Reason: SEE LABEL COMMENTS Stop: 01/31/18 18:01 Morphine Sulfate (Morphine Inj) 4 mg IV.PUSH Q4H PRN PRN Reason: BREAKTHROUGH PAIN Naloxone HCl (Narcan Inj) 0.4 mg IV.PUSH UNSCH PRN PRN Reason: SEE LABEL COMMENTS Stop: 01/31/18 19:38 Nifedipine (Procardia) 10 mg PO NOW PRN PRN Reason: SEE LABEL COMMENTS Nifedipine (Procardia) 20 mg PO NOW PRN PRN Reason: SEE LABEL COMMENTS Nifedipine (Procardia) 20 mg PO NOW PRN PRN Reason: SEE LABEL COMMENTS Ondansetron HCl (Zofran Odt) 4 mg PO Q4H PRN PRN Reason: NAUSEA Oxycodone/Acetaminophen (Percocet 5/325 Mg) 1 tab PO Q4H PRN PRN Reason: PAIN SCALE 3 TO 5 Oxycodone/Acetaminophen (Percocet 5/325 Mg) 2 tab PO Q4H PRN PRN Reason: PAIN SCALE 6 TO 10 Last Admin: 01/31/18 03:58 Dose: 2 tab Senna/Docusate Sodium (Judy-Colace) 2 tab PO Q12H PRN PRN Reason: CONSTIPATION Simethicone (Mylicon Chew) 80 mg PO QID PRN PRN Reason: FLATULENCE Sodium Chloride (Ns Flush) 2 ml IV.FLUSH BID ISA Sodium Chloride (Ns Flush) 2 ml IV.FLUSH PRN PRN PRN Reason: FLUSH AFTER USING IV ACCESS Assessment and Plan - Diagnosis (1) Status post section Code(s): Z98.891 - History of uterine scar from previous surgery Status: Acute (2) Anemia Code(s): D64.9 - Anemia, unspecified Status: Acute - Attending Attestation venifer today anticipate discharge or Monday ambulate and shower (2) Anemia Qualifiers: Anemia type: iron deficiency
[2018-01-31] MEDS ORDERED: Iron Sucrose Inj 100 MG/5 ML Vial IV.PUSH SCH (09:00)
[2018-01-31] MEDS ORDERED: Measles/Mumps/Rubella Vaccine Inj 0.5 ML Vial SQ ONE (16:00)
[2018-01-31] MEDS ORDERED: Diphtheria/Tetanus/Pertussis Vaccine Inj 0.5 ML Syringe IM ONE (16:00)
[2018-01-31] MEDS: Senna/Docusate Sodium 8.6/50 MG Tablet PO PRN (20:24)
[2018-02-01] MEDS ORDERED: Ibuprofen 600 MG Tablet PO PRN (00:30)
--- NOTE | 2018-02-01 07:44 | P.PNOB ---
Subjective Post op day: 2 Interval history: c/o pain, due for pain meds Objective Vital Signs/I&O: Vital Signs 01/31/18 08:00 01/31/18 11:44 01/31/18 17:27 Temperature 97.9 F 97.9 F 97.2 F L Pulse Rate 112 H 110 H 112 H Respiratory Rate 18 18 18 Blood Pressure 113/64 112/72 119/64 01/31/18 20:00 Temperature 98.3 F Pulse Rate 65 Respiratory Rate 18 Blood Pressure 123/77 Result Diagrams: 01/31/18 04:56 01/30/18 10:30 Objective Remarks: GENERAL: Well-nourished, well-developed patient. CARDIOVASCULAR: Regular rate and rhythm without murmurs, gallops, or rubs. RESPIRATORY: Breath sounds equal bilaterally. No accessory muscle use. ABDOMEN/GI: Abdomen soft, non-tender, bowel sounds present. Incision: Clean, dry and intact. Fundus: Firm, non-tender at umbilicus. GENITOURINARY: Light to moderate bleeding. EXTREMITIES: No cyanosis or edema, non-tender, without signs of DVT. Medications and IVs: Active Medications Acetaminophen (Tylenol) 650 mg PO Q6H PRN PRN Reason: PAIN SCALE 1 TO 2 Iron Sucrose (Venofer Inj) 200 mg IV.PUSH ONCE ISA Last Admin: 01/31/18 16:07 Dose: 200 mg Morphine Sulfate (Morphine Inj) 4 mg IV.PUSH Q4H PRN PRN Reason: BREAKTHROUGH PAIN Nifedipine (Procardia) 10 mg PO NOW PRN PRN Reason: SEE LABEL COMMENTS Nifedipine (Procardia) 20 mg PO NOW PRN PRN Reason: SEE LABEL COMMENTS Nifedipine (Procardia) 20 mg PO NOW PRN PRN Reason: SEE LABEL COMMENTS Ondansetron HCl (Zofran Odt) 4 mg PO Q4H PRN PRN Reason: NAUSEA Oxycodone/Acetaminophen (Percocet 5/325 Mg) 1 tab PO Q4H PRN PRN Reason: PAIN SCALE 3 TO 5 Oxycodone/Acetaminophen (Percocet 5/325 Mg) 2 tab PO Q4H PRN PRN Reason: PAIN SCALE 6 TO 10 Last Admin: 02/01/18 02:05 Dose: 2 tab Senna/Docusate Sodium (Judy-Colace) 2 tab PO Q12H PRN PRN Reason: CONSTIPATION Last Admin: 01/31/18 20:24 Dose: 2 tab Simethicone (Mylicon Chew) 80 mg PO QID PRN PRN Reason: FLATULENCE Sodium Chloride (Ns Flush) 2 ml IV.FLUSH BID ISA Last Admin: 02/01/18 02:07 Dose: 2 ml Sodium Chloride (Ns Flush) 2 ml IV.FLUSH PRN PRN PRN Reason: FLUSH AFTER USING IV ACCESS Last Admin: 01/31/18 16:07 Dose: 2 ml Assessment and Plan - Diagnosis (1) Status post section Code(s): Z98.891 - History of uterine scar from previous surgery Status: Acute (2) Anemia Code(s): D64.9 - Anemia, unspecified Status: Acute - Plan s/p repeat [facility] POD #2, ht=26 Discharge Planning: in am - Attending Attestation pt seen by me (2) Anemia Qualifiers: Anemia type: iron deficiency
[2018-02-01] MEDS: Senna/Docusate Sodium 8.6/50 MG Tablet PO PRN ×2 (07:49→21:33)
[2018-02-01 07:57] LABS: Hematocrit 28.2 % (35.0-46.0); Hemoglobin 9.2 gm/dL (11.6-15.3); Mean Corpuscular HGB Conc 32.7 % (32.0-36.0); Mean Corpuscular Hemoglobin 24.7 pg (27.0-34.0); Mean Corpuscular Volume 75.6 fL (80.0-100.0); Platelet Count 173 th/mm3 (150-450); Red Blood Count 3.73 mil/mm3 (4.00-5.30); White Blood Count 6.5 th/mm3 (4.0-11.0)
--- NOTE | 2018-02-02 08:50 | P.PNOB ---
Subjective Post op day: 2 Interval history: POD#2; Doing well, pain managed with PERCOCET, Is stable for discharge today Objective Vital Signs/I&O: Vital Signs 02/01/18 19:42 02/02/18 07:55 Temperature 98.0 F 98.2 F Pulse Rate 121 H 95 H Respiratory Rate 16 18 Blood Pressure 122/80 132/75 Result Diagrams: 02/01/18 07:24 01/30/18 10:30 Objective Remarks: GENERAL: Well-nourished, well-developed patient. CARDIOVASCULAR: Regular rate and rhythm without murmurs, gallops, or rubs. RESPIRATORY: Breath sounds equal bilaterally. No accessory muscle use. ABDOMEN/GI: Abdomen soft, non-tender, bowel sounds present. Incision: Clean, dry and intact. Fundus: Firm, non-tender at umbilicus. GENITOURINARY: Light to moderate bleeding. EXTREMITIES: No cyanosis or edema, non-tender, without signs of DVT. Medications and IVs: Active Medications Acetaminophen (Tylenol) 650 mg PO Q6H PRN PRN Reason: PAIN SCALE 1 TO 2 Last Admin: 02/01/18 14:46 Dose: 650 mg Iron Sucrose (Venofer Inj) 200 mg IV.PUSH ONCE ISA Last Admin: 01/31/18 16:07 Dose: 200 mg Morphine Sulfate (Morphine Inj) 4 mg IV.PUSH Q4H PRN PRN Reason: BREAKTHROUGH PAIN Nifedipine (Procardia) 10 mg PO NOW PRN PRN Reason: SEE LABEL COMMENTS Nifedipine (Procardia) 20 mg PO NOW PRN PRN Reason: SEE LABEL COMMENTS Nifedipine (Procardia) 20 mg PO NOW PRN PRN Reason: SEE LABEL COMMENTS Ondansetron HCl (Zofran Odt) 4 mg PO Q4H PRN PRN Reason: NAUSEA Oxycodone/Acetaminophen (Percocet 5/325 Mg) 1 tab PO Q4H PRN PRN Reason: PAIN SCALE 3 TO 5 Last Admin: 02/01/18 17:33 Dose: 1 tab Oxycodone/Acetaminophen (Percocet 5/325 Mg) 2 tab PO Q4H PRN PRN Reason: PAIN SCALE 6 TO 10 Last Admin: 02/02/18 04:49 Dose: 2 tab Senna/Docusate Sodium (Judy-Colace) 2 tab PO Q12H PRN PRN Reason: CONSTIPATION Last Admin: 02/01/18 21:33 Dose: 2 tab Simethicone (Mylicon Chew) 80 mg PO QID PRN PRN Reason: FLATULENCE Sodium Chloride (Ns Flush) 2 ml IV.FLUSH BID ISA Last Admin: 02/01/18 02:07 Dose: 2 ml Sodium Chloride (Ns Flush) 2 ml IV.FLUSH PRN PRN PRN Reason: FLUSH AFTER USING IV ACCESS Last Admin: 01/31/18 16:07 Dose: 2 ml Assessment and Plan - Diagnosis (1) Anemia Code(s): D64.9 - Anemia, unspecified Status: Acute (2) Status post section Code(s): Z98.891 - History of uterine scar from previous surgery Status: Acute - Plan s/p repeat [facility] POD #2; Plan discharge home Discharge Planning: Today (1) Anemia Qualifiers: Anemia type: iron deficiency
== END 2018-02-02 11:58 | disposition home or self-care (01) ==
LOC: H2E 09:37 → H1EA 19:59
PROVIDERS: ADMIT Obstetrics & Gynecology; ATTEND Obstetrics & Gynecology